=== PATIENT | female | born 1975 | race Caucasian/White ===

== ENCOUNTER 2017-03-23 15:00 | Emergency (ER) | payer MEDICAID ==
[~2017-03-23] VITALS: Wt 68.5 kg
[~2017-03-23 15:00] MED LIST: BUTA1CAP39 PO; CALC600T11 PO; FERR-31 PO; FERR324T6 PO; HYDR-3011 PO; PRENAT PO
[2017-03-23] MEDS ORDERED: LIDOCAINE/MYLANTA 40 ML BTL PO STA (15:18)
[2017-03-23] MEDS ORDERED: RANI150T9 PO (16:37)
[2017-03-23] MEDS ORDERED: ONDANSETRON (ODT) 4 MG TAB ODT STA (16:39)
--- NOTE | 2017-03-23 16:42 | ERD ---
ER Documentation Chief Complaint Date/Time DATE: 03/23/17 TIME: 16:40 Chief Complaint ABD PAIN, ONSET 2 DAYS, PT PG, NO VB HPI This is a 41-year-old female complains of epigastric pain onset yesterday described as burning with radiation up into the chest. She says the pain is worse after eating she has had lots of belching. Patient states she took a test on last week that was positive. She is 2 weeks late on her period. She also says that she has no vaginal bleeding no back pain no pelvic pain. The pain does not radiate to the back or shoulder or right upper quadrant. ROS All systems reviewed and are negative except as per history of present illness. Medications Home Meds Active Scripts Ranitidine Hcl* (Zantac*) 150 Mg Tablet, 150 MG PO BID Y for EPIGASTRIC PAIN, # 30 TAB Prov:IVÁN CONTRERAS DO 03/23/17 Xlqgdhsnefsdx-Ykewyptiqp-Peyotzhu-Codeine* (Fioricet w/ Codeine*) [id number]- 30MG Capsule, 1 CAP PO Q6H Y for PAIN LEVEL 1-5, #20 CAP Prov:SANDEEP COTE NP 04/16/16 Hydroxyzine Hcl* (Hydroxyzine Hcl*) 25 Mg Tablet, 25 MG PO Q8H Y for ITCHING, # 20 TAB Prov:MARIA TERESA JORDAN PA-C 03/01/16 Reported Medications Ferrous Sulfate (Ferrous Sulfate) 324 Mg Tabsr, 324 MG PO BID 12/28/15 Multivit/Min/Fol Ac/Iron/Pren* ( S*) 1 Tab Tab, 1 TAB PO DAILY, TAB 12/28/15 Calcium Carbonate* (Calcium Carbonate*) 600 MG Ca Tab, 600 MG PO DAILY, TAB 12/21/15 Ferrous Sulfate (Iron Supplement) 1 Tab Tablet, 1 TAB PO DAILY, TAB 12/21/15 Multivit/Min/Fol Ac/Iron/Pren* ( S*) 1 Tab Tab, 1 TAB PO DAILY, TAB 11/03/15 Allergies Allergies: Coded Allergies: No Known Allergy (Unverified , 12/21/15) PMhx/Soc History of Surgery: No Anesthesia Reaction: No Hx Neurological Disorder: No Hx Respiratory Disorders: No Hx Cardiac Disorders: Yes (HTN) Hx Psychiatric Problems: No Hx Miscellaneous Medical Probl: No Hx Alcohol Use: No Hx Substance Use: No Hx Tobacco Use: No FmHx Family History: No coronary disease Physical Exam Vitals Vital Signs Date Time Temp Pulse Resp B/P Pulse Ox O2 Delivery O2 Flow Rate FiO2 03/23/17 15:04 99.2 84 18 131/86 100 Physical Exam Const: Well-developed, well-nourished Head: Atraumatic, normocephalic Eyes: Normal Conjunctiva, PERRLA, EOMI, normal sclera, no nystagmus ENT: Normal External Ears, Nose and Mouth, moist mucus membranes. Neck: Full range of motion. No meningismus, no lymphadenopathy. Resp: Clear to auscultation bilaterally, no wheezing, rhonchi, rales Cardio: Regular rate and rhythm, no murmurs, S1 S2 present Abd: Soft, mild epigastric tenderness, non distended. Normal bowel sounds, no guarding or rebound, no pulsitile abdominal masses or bruits Skin: No petechiae or rashes, no ecchymosis , no maculopapular rash Back: No midline or flank tenderness Ext: No cyanosis, or edema, FROM x 4, normal inspection, neurovascularly intact x 4 Neur: Awake and alert, STR 5/5 x 4, sensation intact x 4, no focal findings, cerebellum intact Psych: Normal Mood and Affect Results 24 hrs Current Medications Medications (Trade) Dose Ordered Sig/Oj Route PRN Reason Start Time Stop Time Status Last Admin Dose Admin Miscellaneous Medication (Gi Cocktail (2)) 40 ml ONCE STAT PO 03/23/17 15:18 03/23/17 15:20 DC 03/23/17 15:35 Procedures/MDM Patient has a positive test Patient was given a GI cocktail and she said that relieved her pain but it made her a little nauseous. The patient's pain is dyspepsia. I will give her some Zantac and diet control. She is I referred her to OB [facility]. She has no signs of any pelvic pain or vaginal bleeding that would warrant a miscarriage or ectopic workup at this time Departure Diagnosis: Primary Impression: Dyspepsia Additional Impression: Weeks of gestation: unspecified Qualified Code: Z33.1 - , unspecified gestational age Condition: Stable Patient Instructions: , New Dx Referrals: DELSHSABA GAINES MD, APOSTOLOS A. DO Mar 23, 2017 16:42
== END 2017-03-23 17:09 | disposition home or self-care (01) ==
LOC: FTE 15:00
DX: O26.891 Other specified pregnancy related conditions, first trimester (principal); R10.13 Epigastric pain; O10.911 Unspecified pre-existing hypertension complicating pregnancy, first trimester; Z3A.00 Weeks of gestation of pregnancy not specified
CPT/HCPCS: Z7502; Z7610; 99283

== ENCOUNTER 2017-04-21 12:02 | Emergency (ER) | payer MEDICAID ==
[~2017-04-21] VITALS: Ht 154.9 cm; Wt 70.0 kg
[~2017-04-21 12:02] MED LIST changes: +RANI150T9 PO
[2017-04-21 12:07] VITALS: Ht 154.9 cm; Wt 70.0 kg
[2017-04-21] MEDS ORDERED: OXYMETAZOLINE 0.05% 15 ML NAS SPRAY NASAL ONE (12:30)
--- NOTE | 2017-04-21 12:56 | ERD ---
ER Documentation Chief Complaint Date/Time DATE: 04/21/17 TIME: 12:54 Chief Complaint CP/BACK PAIN AND SOB X 15 DAYS. 12 WKS HPI This is a 41-year-old female who presents to the emergency room for evaluation of nasal congestion. This patient was triaged in the triage note does state that the patient is having chest pain however this patient adamantly denies any chest pain any back pain and shortness of breath and states that she is here because she cannot sleep last night because she has nasal congestion. She states she is 12 weeks denies any abdominal pain, vaginal bleeding or vaginal discharge. No relieving factors for her nasal congestion ROS All systems reviewed and are negative except as per history of present illness. Medications Home Meds Discontinued Reported Medications Ferrous Sulfate (Ferrous Sulfate) 324 Mg Tabsr, 324 MG PO BID 12/28/15 Multivit/Min/Fol Ac/Iron/Pren* ( S*) 1 Tab Tab, 1 TAB PO DAILY, TAB 12/28/15 Calcium Carbonate* (Calcium Carbonate*) 600 MG Ca Tab, 600 MG PO DAILY, TAB 12/21/15 Ferrous Sulfate (Iron Supplement) 1 Tab Tablet, 1 TAB PO DAILY, TAB 12/21/15 Multivit/Min/Fol Ac/Iron/Pren* ( S*) 1 Tab Tab, 1 TAB PO DAILY, TAB 11/03/15 Discontinued Scripts Ranitidine Hcl* (Zantac*) 150 Mg Tablet, 150 MG PO BID Y for EPIGASTRIC PAIN, # 30 TAB Prov:IVÁN CONTRERAS DO 03/23/17 Axrykedfjpcvy-Nurujykiir-Ephxshdm-Codeine* (Fioricet w/ Codeine*) [id number]- 30MG Capsule, 1 CAP PO Q6H Y for PAIN LEVEL 1-5, #20 CAP Prov:SANDEEP COTE NP 04/16/16 Hydroxyzine Hcl* (Hydroxyzine Hcl*) 25 Mg Tablet, 25 MG PO Q8H Y for ITCHING, # 20 TAB Prov:MARIA TERESA JORDAN PA-C 03/01/16 Allergies Allergies: Coded Allergies: No Known Allergy (Unverified , 04/21/17) PMhx/Soc Medical and Surgical Hx: pt denies Surgical Hx History of Surgery: No Anesthesia Reaction: No Hx Neurological Disorder: No Hx Respiratory Disorders: No Hx Cardiac Disorders: Yes (HTN) Hx Psychiatric Problems: No Hx Miscellaneous Medical Probl: No Hx Alcohol Use: No Hx Substance Use: No Hx Tobacco Use: No Smoking Status: Never smoker Physical Exam Vitals Vital Signs Date Time Temp Pulse Resp B/P Pulse Ox O2 Delivery O2 Flow Rate FiO2 04/21/17 12:07 98.9 82 16 156/92 100 Physical Exam Const: No acute distress Head: Atraumatic Eyes: Normal Conjunctiva ENT: Bilateral nasal congestion,Normal External Ears, Nose and Mouth. Neck: Full range of motion..~ No meningismus. Resp: Clear to auscultation bilaterally Cardio: Regular rate and rhythm, no murmurs Abd: Soft, non tender, non distended. Normal bowel sounds Skin: No petechiae or rashes Back: No midline or flank tenderness Ext: No cyanosis, or edema Neur: Awake and alert Psych: Normal Mood and Affect Results 24 hrs Current Medications Medications (Trade) Dose Ordered Sig/Oj Route PRN Reason Start Time Stop Time Status Last Admin Dose Admin Oxymetazoline HCl (Afrin [place]) 2 spray ONCE ONCE NASAL 04/21/17 12:30 04/21/17 12:31 DC Procedures/MDM EKG: Rate/Rhythm: [Normal Sinus Rhythm] QRS, ST, T-waves: [No changes consistent w/ acute ischemia] Impression: [No evidence of ischemia or arrhythmia] This 41-year-old female presents to the ER for evaluation of nasal congestion. The patient had an EKG done which shows normal sinus rhythm. She has no chest pain, no shortness of breath. She is not hypoxic, not tachycardic, she is hemodynamically stable. Patient was given Afrin in the emergency room and when I reevaluated this patient she states that she is feeling much better at this time. The patient will be discharged with Afrin. Departure Diagnosis: Primary Impression: Nasal congestion Additional Impression: URI, acute Condition: Stable CAL THOMAS DO Apr 21, 2017 12:56
[2017-04-21 13:25] VITALS: BP 142/76; PULSE 78; RESP 18; TEMP 98.7
== END 2017-04-21 13:26 | disposition home or self-care (01) ==
LOC: E/R 12:02
DX: O99.89 Other specified diseases and conditions complicating pregnancy, childbirth and the puerperium (principal); R09.81 Nasal congestion; J06.9 Acute upper respiratory infection, unspecified; I10 Essential (primary) hypertension; Z3A.12 12 weeks gestation of pregnancy
CPT/HCPCS: 93005; Z7502; Z7610

== ENCOUNTER 2017-09-06 02:00 | Outpatient (CLI) | END 2017-09-06 06:24 | disposition home or self-care (01) ==

== ENCOUNTER 2017-09-07 19:33 | Outpatient (CLI) | END 2017-09-08 02:00 | disposition home or self-care (01) ==

== ENCOUNTER 2017-10-10 18:38 | Inpatient (IN) | END 2017-10-14 12:57 | disposition home or self-care (01) | DRG 775 ==